=== PATIENT | female | born 1960 | race Two or more races ===

== ENCOUNTER → 2022-09-08 08:43 | Outpatient (BNVA) | payer OTHER, SELFPAY | PROVIDERS: PCP Internal Medicine; Visit Provider Student in an Organized Health Care Education/Training Program | DX: M79.7 Fibromyalgia (principal); M25.521 Pain in right elbow; M25.522 Pain in left elbow | CPT/HCPCS: 99202 ==

== ENCOUNTER 2022-10-18 11:12 | Outpatient (REF) | payer OTHER, SELFPAY ==
--- NOTE | ~2022-10-18 | XR_ITS ---
EXAMINATION: XR ELBOW, RIGHT CLINICAL INFORMATION: Pain. COMPARISON: None TECHNIQUE: AP, lateral, and oblique views of the right elbow. FINDINGS: The bones and soft tissues are normal. No fracture or joint effusion. A tiny loose body is questioned within the anterolateral joint space of the elbow. There is a small smoothly marginated accessory ossification center seen adjacent to the medial femoral condyle. Alignment is anatomic. A tiny enthesophyte arises from the olecranon process at the quadriceps tendon insertion. Joint spaces are maintained. XR/XR elbow RT min 3V IMPRESSION: No fracture, dislocation or joint effusion is seen. A tiny loose body is suspected at the right elbow anterolateral joint space.
--- NOTE | ~2022-10-18 | XR_ITS ---
EXAMINATION: XR ELBOW, LEFT CLINICAL INFORMATION: Pain. COMPARISON: None TECHNIQUE: AP, lateral, and oblique views of the left elbow. FINDINGS: The bones and soft tissues are normal. No fracture or joint effusion. Alignment is anatomic. Joint spaces are maintained. XR/XR elbow LT min 3V IMPRESSION: Normal left elbow.
== END 2022-10-18 11:13 | disposition home or self-care (01) ==
LOC: HO.XRAY 11:12
PROVIDERS: PCP Physician Assistant; Visit Provider Student in an Organized Health Care Education/Training Program
DX: M25.521 Pain in right elbow (principal); M25.522 Pain in left elbow
CPT/HCPCS: 73080

== ENCOUNTER 2022-12-02 11:30 | Outpatient (REF) | payer OTHER, SELFPAY ==
--- NOTE | 2022-12-02 10:15 | EMG_ITS ---
Bilateral median and ulnar motor and sensory studies were performed. Bilateral radial sensory studies were performed and paraspinal muscles were tested with a needle. IMPRESSION: 1. Mild, right more than left, median neuropathy across carpal tunnel. 2. No evidence of ulnar neuropathy. MD GEORGI Gutierrez/EDY / [id number]
== END 2022-12-02 11:31 | disposition home or self-care (01) ==
LOC: HO.NEURO 11:30
PROVIDERS: PCP Physician Assistant; Visit Provider Student in an Organized Health Care Education/Training Program
DX: G56.23 Lesion of ulnar nerve, bilateral upper limbs (principal)
CPT/HCPCS: 95886; 95911

== ENCOUNTER → 2022-12-08 07:58 | Outpatient (BNVA) | payer OTHER, SELFPAY | PROVIDERS: PCP Physician Assistant; Visit Provider Student in an Organized Health Care Education/Training Program | DX: M79.7 Fibromyalgia (principal); M51.36 Other intervertebral disc degeneration, lumbar region; G56.01 Carpal tunnel syndrome, right upper limb | CPT/HCPCS: 99212 ==

== ENCOUNTER → 2023-01-03 09:13 | Outpatient (BNVA) | payer OTHER, SELFPAY | PROVIDERS: PCP Internal Medicine; Visit Provider Nurse Practitioner Family | DX: M54.16 Radiculopathy, lumbar region (principal); M51.36 Other intervertebral disc degeneration, lumbar region; M47.816 Spondylosis without myelopathy or radiculopathy, lumbar region; M62.830 Muscle spasm of back; M79.7 Fibromyalgia; Z72.0 Tobacco use | CPT/HCPCS: 99202 ==

== ENCOUNTER 2023-01-12 10:59 | Outpatient (REF) | payer OTHER, SELFPAY ==
--- NOTE | ~2023-01-12 | XR_ITS ---
EXAMINATION: XR LUMBOSACRAL SPINE WITH OBLIQUES CLINICAL INFORMATION: Muscle spasm of the back. COMPARISON: None available. TECHNIQUE: 6 views of the lumbar spine including flexion and extension views. FINDINGS: Rightward apical curvature of the lumbar spine. No acute compression deformity or subluxation. No instability on flexion or extension views. Mild multilevel intervertebral disc height loss. Moderate facet arthropathy at L4-L5 and L5-S1 with some degree of neural foraminal encroachment at L5-S1. SI joints are symmetric. Pubic symphysis is maintained. No significant soft tissue abnormality. XR/XR lumbar spine 6V w bending IMPRESSION: 1. No acute compression deformity or subluxation. 2. Right apical curvature of the lumbar spine. 3. Mild to moderate lumbar spondylosis with some degree of neural foraminal encroachment at L5-S1. Recommend further evaluation with an MRI of lumbar spine as clinically indicated.
== END 2023-01-12 11:00 | disposition home or self-care (01) ==
LOC: HO.XRAY 10:59
PROVIDERS: PCP Internal Medicine; Visit Provider Nurse Practitioner Family
DX: M51.36 Other intervertebral disc degeneration, lumbar region (principal); M54.16 Radiculopathy, lumbar region; M62.830 Muscle spasm of back
CPT/HCPCS: 72114

== ENCOUNTER 2023-03-12 08:26 | Outpatient (REF) | payer OTHER, SELFPAY ==
--- NOTE | ~2023-03-12 | MR_ITS ---
MR LUMBAR SPINE WITHOUT CONTRAST CLINICAL INFORMATION: Spondylosis without myelopathy or radiculopathy, lumbar region. COMPARISON: Lumbar spine radiographs 01/12/2023. TECHNIQUE: MRI of the lumbar spine was obtained using routine sequences without contrast. FINDINGS: There is slight retrosubluxation of L1 on L2. Lumbar alignment is otherwise normal. The vertebral body heights are maintained. Disc volumes are preserved. There is no bone marrow edema. There are no acute fractures. Disc volumes are preserved. There is partial disc desiccation at all lumbar levels. 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 Small multilevel endplate osteophytes. Conus terminates at the T12-L1 level. L1-L2: A shallow right paracentral disc protrusion mildly narrows the central canal. No foraminal stenosis. L2-L3: Disc contour is normal. No central canal stenosis and no foraminal stenosis. L3-L4: Disc contour is normal. Moderate bilateral facet arthropathy and ligamentum flavum thickening. No central canal stenosis and no foraminal stenosis. L4-L5: Diffuse annular disc bulge and severe bilateral facet arthropathy and ligamentum flavum thickening. No central canal stenosis. There is mild foraminal encroachment bilaterally. L5-S1: Diffuse annular disc bulge with a superimposed shallow central disc protrusion and severe bilateral facet arthropathy and ligamentum flavum thickening. No central canal stenosis. A shallow 5 mm synovial cyst projecting anteriorly from the severely degenerative right facet joint contacts without compressing the foraminal segment of the exiting right L5 nerve root. MR/MR lumbar spine wo con IMPRESSION: - At L5-S1, there is a shallow central disc protrusion and there is severe bilateral facet arthropathy. A shallow 5 mm synovial cyst projecting anteriorly from the severely degenerative right facet joint contacts without compressing the foraminal segment of the exiting right L5 nerve root. - At L1-L2, a shallow right paracentral disc protrusion mildly indents the right ventral thecal sac. - Additional spondylitic changes as discussed above. No severe central canal stenosis and no severe foraminal stenosis within the lumbar spine. 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
== END 2023-03-12 08:27 | disposition home or self-care (01) ==
LOC: HO.MRI 08:26
PROVIDERS: PCP Internal Medicine; Visit Provider Nurse Practitioner Family
DX: M47.816 Spondylosis without myelopathy or radiculopathy, lumbar region (principal); M54.16 Radiculopathy, lumbar region; M51.36 Other intervertebral disc degeneration, lumbar region
CPT/HCPCS: 72148

== ENCOUNTER 2023-05-30 09:58 | Outpatient (AMB) | payer OTHER, SELFPAY ==
--- NOTE | 2023-05-30 10:00 | MHC.OFFVIS ---
Intake Vital Signs 05/30/23 10:04 Height 5 ft 3 in Weight 157 lb 6 oz BMI 27.9 BP 139/68 Blood Pressure Location Lt brachial Position Sitting Pulse 83 Pulse Source Pulse Oximeter Pulse Oximetry (%) 97 Oxygen Delivery Method Room Air Intake Visit Reasons: MRI results [employer] Curator Required: Yes [employer] Curator Name: Patient's CUSTOMER CONTACT REPRESENTATIVE Allergies Penicillins Allergy (Intermediate, Verified 05/30/23 10:04) hives seafood Allergy (Severe, Uncoded 12/08/22 08:30) Anaphylaxis HPI HPI Comments History of Present Illness Details Patient presents today for follow up and discuss recent lumbar spine MRI results. Patient presents with widespread diffuse body pain that starts at her neck and spreads across her upper back and both shoulder and into her mid and lower back, hips and both legs posteriorly. Patient reports this is due to fibromyalgia but also reports symptoms of axial low back pain with negative SLR testing today. Movements, prolonged standing or walking increase her mid to lower back pain. She is interested to undergo diagnostic lumbar medial branch blocks for potential Sprint PNS trial. We also discussed RFA and therapeutic injections. Denies any recent cough, cold, infection, fever or other significant changes in medical history since last office visit. Patient denies any bladder or bowel incontinence or saddle anesthesia. RIOR: Patient is a pleasant 63 years old Hebrew-speaking female with prior history of fibromyalgia, depression, chronic low back pain, and lumbar degenerative disc disease presents today for initial evaluation of worsening low back pain his radiation down to both of her legs. This is chronic pain for her and she has been previously followed by [facility] and received multiple injections with physical therapy there. Denies previous spine surgery. Patient states she did not make any significant gains regarding pain or function with previous physical therapy. Patient states that due to frequent no-shows to follow-up visits [facility] no longer will see her. She denies any recent trauma, injury, or falls. Patient reports radiating pain is worse on the left side which is in the lateral distribution with associated numbness and tingling and occasional weakness in both legs and her feet. She reports swelling in her ankles with walking. Pain affects her daily mobility, functioning, sleep and social interactions. Cymbalta and Lyrica has been helpful for fibromyalgia symptoms nd sleep. However, during severe episodes of low back pain she is unable to sleep. Patient ambulating with mildly antalgic gait and uses cane. Reports better mobility with walker which she has at home. Patient reports lumbar spine MRI and x-rays were done at [facility] and are not available today for review. She continues to stay active and incorporate short daily walks. Denies fever, abdominal or groin pain, bladder or bowel incontinence, or saddle anesthesia. Location Low back pain with radiation to both legs laterally Duration Chronic for 5 years Characteristics of symptom or complaint Aching, numbness, tingling, spasming, stabbing, sharp, burning Aggravating or associated factors Prolonged walking, standing, changing position, weather changes Relieving factors Tylenol, pregabalin, duloxetine, heat therapy, activity modification Treatment [facility], injections [facility] Medical History Bilateral elbow joint pain Fibromyalgia GERD (gastroesophageal reflux disease) Chronic obstructive bronchitis Depression Colonic polyp ANURADHA (obstructive sleep apnea) Tobacco abuse Asthma Parathyroid adenoma Incontinence of feces COPD (chronic obstructive pulmonary disease) Stable angina pectoris Allergic rhinitis Constipation IBS (irritable bowel syndrome) Dyspepsia Heartburn Postprandial epigastric pain Surgical History Hx of section Hx of tubal ligation Family History Father Hypertension Diabetes Kidney disease Heart disease Social History Household Members: None Alcohol intake: never Patient Tobacco Use Status: Current everyday Tobacco user Cigarettes Per Day: 7 Current occupational status: unemployed Review of Systems Const All systems reviewed & are unremarkable except as noted in HPI and below Physical Exam Vital Signs: Last Vital Signs Pulse 83 05/30/23 10:04 BP 139/68 05/30/23 10:04 Pulse Ox 97 05/30/23 10:04 Oxygen Delivery Method Room Air 05/30/23 10:04 BMI result Body Mass Index 27.9 General: Appears afebrile. Alert and oriented. Mood and affect appropriate. Follows and participates in conversation appropriately. Respiratory effort is unlabored. No cough. Able to transition from sit to stand unassisted. Uses cane with ambulation. Ambulates with bilaterally normal heel strike and toe off. Back/Spine/Pelvis Other: Lumbar extension reproduces moderate pain. Lumbar flexion reproduces stretching in lower back and legs. Multiple tender points 16/16 upper and lower extremities bilaterally. Cervical Spine: cervical ROM normal, cervical muscular tenderness and No Cervical spine tenderness Thoracic/Lumbar Spine: thoracic and lumbar spine normal to inspection, No Thoracic/lumbar spine scar(s), Lasegue's sign negative, straight leg raise negative bilaterally, pain with thoraco-lumbar ROM, paraspinal muscle tenderness, thoraco-lumbar ROM limited, No thoracic spinal tenderness and lumbar spinal tenderness at L4 Sacroiliac joints: bilaterally (+Luís, Luther's test reproduces lateral hip discomfort, not LBP) tender to palpation Results Reviewed Results Reviewed: MR LUMBAR SPINE WITHOUT CONTRAST 03/12/23 CLINICAL INFORMATION: Spondylosis without myelopathy or radiculopathy, lumbar region. COMPARISON: Lumbar spine radiographs 01/12/2023. FINDINGS: There is slight retrosubluxation of L1 on L2. Lumbar alignment is otherwise normal. The vertebral body heights are maintained. Disc volumes are preserved. There is no bone marrow edema. There are no acute fractures. Disc volumes are preserved. There is partial disc desiccation at all lumbar levels. 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 Small multilevel endplate osteophytes. Conus terminates at the T12-L1 level. L1-L2: A shallow right paracentral disc protrusion mildly narrows the central canal. No foraminal stenosis. L2-L3: Disc contour is normal. No central canal stenosis and no foraminal stenosis. L3-L4: Disc contour is normal. Moderate bilateral facet arthropathy and ligamentum flavum thickening. No central canal stenosis and no foraminal stenosis. L4-L5: Diffuse annular disc bulge and severe bilateral facet arthropathy and ligamentum flavum thickening. No central canal stenosis. There is mild foraminal encroachment bilaterally. L5-S1: Diffuse annular disc bulge with a superimposed shallow central disc protrusion and severe bilateral facet arthropathy and ligamentum flavum thickening. No central canal stenosis. A shallow 5 mm synovial cyst projecting anteriorly from the severely degenerative right facet joint contacts without compressing the foraminal segment of the exiting right L5 nerve root. IMPRESSION: - At L5-S1, there is a shallow central disc protrusion and there is severe bilateral facet arthropathy. A shallow 5 mm synovial cyst projecting anteriorly from the severely degenerative right facet joint contacts without compressing the foraminal segment of the exiting right L5 nerve root. - At L1-L2, a shallow right paracentral disc protrusion mildly indents the right ventral thecal sac. - Additional spondylitic changes as discussed above. No severe central canal stenosis and no severe foraminal stenosis within the lumbar spine. 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 Assessment & Plan Assessment & Plan (1) Degenerative disc disease, lumbar: Code(s): M51.36 - Other intervertebral disc degeneration, lumbar region (2) Fibromyalgia: Code(s): M79.7 - Fibromyalgia (3) Muscle spasm of back: Code(s): M62.830 - Muscle spasm of back (4) Lumbar radiculopathy: Code(s): M54.16 - Radiculopathy, lumbar region (5) Lumbar spondylosis: Code(s): M47.816 - Spondylosis without myelopathy or radiculopathy, lumbar region Plan Lumbar spine MRI results discussed with patient today and are noted above. For fibromyalgic chronic pain: Recommend daily physical activity, stress reduction, CBT therapy, sleep hygiene, anti-inflammatory diet and aqua therapy. Continue Lyrica, Duloxetine, Tylenol. For ongoing axial low back pain will proceed plan for diagnostic bilateral L3-L4 DR L5 medial branch blocks with local and fluoroscopy. If she has significant relief from the diagnostic blocks for her axial low back pain, will consider either therapeutic injections, Sprint PNS or RFA depending on her preference. Informational booklet provided to patient today in Hebrew. She is interested in Sprint trial. All questions and concerns have been answered and patient agreed with the plan. Follow up after injections and sooner if needed. Anticoagulation: Patient not on anticoagulant Justification for interventional therapy: ? Patient with average pain > 6/10 ? Patient has exhausted conservative therapy, physical therapy The risks, consequences, alternatives, and benefits of various treatment options were discussed with the patient in great detail, including conservative management, injections and procedures. Coding Level of Care Code Est Pt Level 4 (56459) Diagnoses Degenerative disc disease, lumbar M51.36 Fibromyalgia M79.7 Muscle spasm of back M62.830 Lumbar radiculopathy M54.16 Lumbar spondylosis M47.816
[2023-05-30 10:04] VITALS: BP 139/68; PULSE 83; O2SAT 97; BMI 27.9
== END 2023-05-30 10:26 | disposition home or self-care (01) ==
PROVIDERS: PCP Internal Medicine; Visit Provider Nurse Practitioner Family
DX: M51.36 Other intervertebral disc degeneration, lumbar region (principal); M79.7 Fibromyalgia; M62.830 Muscle spasm of back; M54.16 Radiculopathy, lumbar region; M47.816 Spondylosis without myelopathy or radiculopathy, lumbar region
CPT/HCPCS: 99214

== ENCOUNTER → 2023-05-30 09:58 | Outpatient (BNVA) | payer OTHER, SELFPAY | PROVIDERS: PCP Internal Medicine; Visit Provider Nurse Practitioner Family | DX: M51.36 Other intervertebral disc degeneration, lumbar region (principal); M79.7 Fibromyalgia; M62.830 Muscle spasm of back; M54.16 Radiculopathy, lumbar region; M47.816 Spondylosis without myelopathy or radiculopathy, lumbar region | CPT/HCPCS: 99212 ==

== ENCOUNTER 2023-06-21 06:04 | Outpatient (REF) | payer OTHER, SELFPAY ==
--- NOTE | ~2023-06-21 | FL_ITS ---
EXAMINATION: XR FLUOROSCOPY WITH IMAGES CLINICAL INFORMATION: Spondylosis without myelopathy or radiculopathy, lumbar region. COMPARISON: None available. TECHNIQUE: Fluoroscopy Supervised By: Dr. Alexis Burks. Fluoroscopy Time: 0.6 minutes. Cumulative Dose: 17.7 mGy. DAP: 0.246 Gycm2. Images: 6. FINDINGS: Images demonstrate needle placement and contrast injection adjacent to the bilateral lateral L3, L4 and L5 vertebrae FL/FL guidance in treatment room IMPRESSION: Fluoroscopy guidance for pain management procedure
== END 2023-06-21 06:05 | disposition home or self-care (01) ==
LOC: CF 06:04
PROVIDERS: Visit Provider Anesthesiology
DX: M47.26 Other spondylosis with radiculopathy, lumbar region (principal); M51.36 Other intervertebral disc degeneration, lumbar region; M79.7 Fibromyalgia; M62.830 Muscle spasm of back
CPT/HCPCS: 64493; 64494; J2795; Q9967

== ENCOUNTER 2023-06-21 09:47 | Outpatient (AMB) | payer OTHER, SELFPAY ==
--- NOTE | 2023-06-21 09:58 | A.OFFVIS_ITS ---
Intake Vital Signs 06/21/23 11:14 06/21/23 11:15 Height 5 ft 3 in 5 ft 3 in Weight 157 lb 157 lb BMI 27.8 27.8 BP 130/74 132/88 Blood Pressure Location Lt brachial Rt brachial Position Sitting Sitting Respiration 12 14 Pulse 78 73 Pulse Source Pulse Oximeter Pulse Oximeter Pulse Oximetry (%) 94 97 Oxygen Delivery Method Room Air Room Air Comment pre-op post-op Intake Visit Reasons: BILATERAL DIAGNOSTIC L3, L4, DRL5 MBB Allergies Penicillins Allergy (Intermediate, Verified 06/21/23 11:16) hives seafood Allergy (Severe, Uncoded 12/08/22 08:30) Anaphylaxis PFSH Medical History Bilateral elbow joint pain Fibromyalgia GERD (gastroesophageal reflux disease) Chronic obstructive bronchitis Depression Colonic polyp ANURADHA (obstructive sleep apnea) Tobacco abuse Asthma Parathyroid adenoma Incontinence of feces COPD (chronic obstructive pulmonary disease) Stable angina pectoris Allergic rhinitis Constipation IBS (irritable bowel syndrome) Dyspepsia Heartburn Postprandial epigastric pain Surgical History Hx of section Hx of tubal ligation Family History Father Hypertension Diabetes Kidney disease Heart disease Social History Household Members: None Alcohol intake: never Patient Tobacco Use Status: Current everyday Tobacco user Cigarettes Per Day: 7 Current occupational status: unemployed Physical Exam Vital Signs: Last Vital Signs Pulse 73 06/21/23 11:15 Resp 14 06/21/23 11:15 BP 132/88 06/21/23 11:15 Pulse Ox 97 06/21/23 11:15 Oxygen Delivery Method Room Air 06/21/23 11:15 BMI result Body Mass Index 27.8 Assessment & Plan Assessment & Plan (1) Degenerative disc disease, lumbar: Code(s): M51.36 - Other intervertebral disc degeneration, lumbar region Plan: Diagnostic bilateral L3-L4 dorsal ramus L5 medial branch block. Informed consent was explained to the patient. All questions were explained and? answered.? The patient was taken inside the operating room where she was positioned prone on the operating table.? Time-out was performed delineating correct site, side, the nature of the procedure, patient's allergy, preoperative antibiotic if needed.? All operating room staff was participating in OR time-out procedure. The lower back was prepped with ChloraPrep and draped with sterile towels.? Sterilely draped C-arm was brought over the operating field and sq picture of L4-and L5 vertebra and S1 AREA were delineated on the screen.? Point of interest were delineated as connection of superior articular process of L4 and L5 verte bra bilaterally with corresponding transverse processes as well as connection of the sacral alae bilaterally with superior articular process of S1.? The projection of the point of interest to the skin were injected with the small amount of local anesthetic lidocaine 2% 1-1.5 cc.? After that 22 gauge 3-1/2 inch spinal needle was driven sequentially to the points of interest in tunnel vision fashion. After needles gently contacted the bone at the point of interests the needle was injected with small amount of the contrast.? The injection of the contrast did not demonstrate any intravascular or intrathecal spread of the contrast.? After that injection of the? bupivacaine 0.5%-1cc was performed at each needle location.? Upon completion of the injections? needle was? removed and sterile Band-Aids were applied.? The? patient was awaken and taken outside of the operating room to recovery room where she recovered uneventfully.? She went home without immediate complications. Pain diary was explained to the patient. (2) Fibromyalgia: Code(s): M79.7 - Fibromyalgia (3) Muscle spasm of back: Code(s): M62.830 - Muscle spasm of back (4) Lumbar radiculopathy: Code(s): M54.16 - Radiculopathy, lumbar region (5) Lumbar spondylosis: Code(s): M47.816 - Spondylosis without myelopathy or radiculopathy, lumbar region Plan Lumbar spine MRI results discussed with patient today and are noted above. For fibromyalgic chronic pain: Recommend daily physical activity, stress reduction, CBT therapy, sleep hygiene, anti-inflammatory diet and aqua therapy. Continue Lyrica, Duloxetine, Tylenol. For ongoing axial low back pain will proceed plan for diagnostic bilateral L3-L4 DR L5 medial branch blocks with local and fluoroscopy. If she has significant relief from the diagnostic blocks for her axial low back pain, will consider either therapeutic injections, Sprint PNS or RFA depending on her preference. Informational booklet provided to patient today in Guamanian. She is interested in Sprint trial. All questions and concerns have been answered and patient agreed with the plan. Follow up after injections and sooner if needed. Anticoagulation: Patient not on anticoagulant Justification for interventional therapy: ? Patient with average pain > 6/10 ? Patient has exhausted conservative therapy, physical therapy The risks, consequences, alternatives, and benefits of various treatment options were discussed with the patient in great detail, including conservative management, injections and procedures. Orders: Orders FL guidance in treatment room 06/21/23 M47.816 - Spondylosis without myelopathy or radiculopathy, lumbar region Coding Level of Care Code Procedure Only Diagnoses Degenerative disc disease, lumbar M51.36 Fibromyalgia M79.7 Muscle spasm of back M62.830 Lumbar radiculopathy M54.16 Lumbar spondylosis M47.816
[2023-06-21 11:14] VITALS: BP 130/74; PULSE 78; RESP 12; O2SAT 94; BMI 27.8
[2023-06-21 11:15] VITALS: BP 132/88; PULSE 73; RESP 14; O2SAT 97; BMI 27.8
== END 2023-06-21 11:01 | disposition home or self-care (01) ==
LOC: HO.PMCPRC 09:47
PROVIDERS: PCP Internal Medicine; Visit Provider Anesthesiology
DX: M47.816 Spondylosis without myelopathy or radiculopathy, lumbar region (principal)
CPT/HCPCS: 64493; 64494

== ENCOUNTER 2023-06-28 10:06 | Outpatient (AMB) | payer OTHER, SELFPAY ==
--- NOTE | 2023-06-28 10:14 | MHC.OFFVIS ---
Intake Vital Signs 06/28/23 10:20 Height 5 ft 3 in Weight 163 lb BMI 28.9 BP 178/97 H Blood Pressure Location Rt brachial Position Sitting Pulse 84 Pulse Source Pulse Oximeter Pulse Oximetry (%) 98 Oxygen Delivery Method Room Air Intake Visit Reasons: BILATERAL DX L3, L4, DRL5 MBB/06/21/23/CONFIRMED Intake Note: Pain today 02/21 Hydraulic Spinner Required: Yes Hydraulic Spinner Language: Teacher Home Therapy Name: [facility] #[id number] Allergies Penicillins Allergy (Intermediate, Verified 06/28/23 10:21) hives seafood Allergy (Severe, Uncoded 12/08/22 08:30) Anaphylaxis HPI HPI Comments History of Present Illness Details Patient presents today to assess response to Diagnostic Bilateral L3-L4-DR L5 MBB on 06/21/[address] Burks. Patient reports 50-60% pain relief for 4-5 hours with partially improved functioning, mobility, climbing stairs and ADLs. She is not fully content with outcome of nerve blocks. Patient is hesitant towards any further interventional treatments as injections have exacerbated her fibromyalgia symptoms. She is interested to pursue formal course of physical therapy and trial of anti-inflammatory medication. Patient denies any bladder or bowel incontinence or saddle anesthesia. Past Procedures: 06/21/23: Diagnostic Bilateral L3-L4-DR L5 MBB -50-60% pain relief for 4 hours PRIOR: Patient presents today for follow up and discuss recent lumbar spine MRI results. Patient presents with widespread diffuse body pain that starts at her neck and spreads across her upper back and both shoulder and into her mid and lower back, hips and both legs posteriorly. Patient reports this is due to fibromyalgia but also reports symptoms of axial low back pain with negative SLR testing today. Movements, prolonged standing or walking increase her mid to lower back pain. She is interested to undergo diagnostic lumbar medial branch blocks for potential Sprint PNS trial. We also discussed RFA and therapeutic injections. Denies any recent cough, cold, infection, fever or other significant changes in medical history since last office visit. Patient denies any bladder or bowel incontinence or saddle anesthesia. RIOR: Patient is a pleasant 63 years old Irish-speaking female with prior history of fibromyalgia, depression, chronic low back pain, and lumbar degenerative disc disease presents today for initial evaluation of worsening low back pain his radiation down to both of her legs. This is chronic pain for her and she has been previously followed by [facility] and received multiple injections with physical therapy there. Denies previous spine surgery. Patient states she did not make any significant gains regarding pain or function with previous physical therapy. Patient states that due to frequent no-shows to follow-up visits [facility] no longer will see her. She denies any recent trauma, injury, or falls. Patient reports radiating pain is worse on the left side which is in the lateral distribution with associated numbness and tingling and occasional weakness in both legs and her feet. She reports swelling in her ankles with walking. Pain affects her daily mobility, functioning, sleep and social interactions. Cymbalta and Lyrica has been helpful for fibromyalgia symptoms nd sleep. However, during severe episodes of low back pain she is unable to sleep. Patient ambulating with mildly antalgic gait and uses cane. Reports better mobility with walker which she has at home. Patient reports lumbar spine MRI and x-rays were done at [facility] and [facility] and are not available today for review. She continues to stay active and incorporate short daily walks. Denies fever, abdominal or groin pain, bladder or bowel incontinence, or saddle anesthesia. Location Low back pain with radiation to both legs laterally Duration Chronic for 5 years Characteristics of symptom or complaint Aching, numbness, tingling, spasming, stabbing, sharp, burning Aggravating or associated factors Prolonged walking, standing, changing position, weather changes Relieving factors Tylenol, pregabalin, duloxetine, heat therapy, activity modification Treatment [facility]-PT, injections [facility] Medical History Bilateral elbow joint pain Fibromyalgia GERD (gastroesophageal reflux disease) Chronic obstructive bronchitis Depression Colonic polyp ANURADHA (obstructive sleep apnea) Tobacco abuse Asthma Parathyroid adenoma Incontinence of feces COPD (chronic obstructive pulmonary disease) Stable angina pectoris Allergic rhinitis Constipation IBS (irritable bowel syndrome) Dyspepsia Heartburn Postprandial epigastric pain Surgical History Hx of section Hx of tubal ligation Family History Father Hypertension Diabetes Kidney disease Heart disease Social History Household Members: None Alcohol intake: never Patient Tobacco Use Status: Current everyday Tobacco user Cigarettes Per Day: 7 Current occupational status: unemployed Review of Systems Const All systems reviewed & are unremarkable except as noted in HPI and below Physical Exam Vital Signs: Last Vital Signs Pulse 84 06/28/23 10:20 BP 178/97 H 06/28/23 10:20 Pulse Ox 98 06/28/23 10:20 Oxygen Delivery Method Room Air 06/28/23 10:20 BMI result Body Mass Index 28.9 General: Appears afebrile. Alert and oriented. Mood and affect appropriate. Follows and participates in conversation appropriately. Respiratory effort is unlabored. No cough. Able to transition from sit to stand unassisted. Uses cane with ambulation. Ambulates with bilaterally normal heel strike and toe off. Back/Spine/Pelvis Other: Lumbar extension reproduces moderate pain. Lumbar flexion reproduces stretching in lower back and legs. No midline tenderness to palpation in the lumbar spine. Mild paraspinal tenderness to palpation in the lumbar spine. Multiple tender points 16/16 upper and lower extremities bilaterally. Results Reviewed Results Reviewed: MR LUMBAR SPINE WITHOUT CONTRAST 03/12/23 CLINICAL INFORMATION: Spondylosis without myelopathy or radiculopathy, lumbar region. COMPARISON: Lumbar spine radiographs 01/12/2023. FINDINGS: There is slight retrosubluxation of L1 on L2. Lumbar alignment is otherwise normal. The vertebral body heights are maintained. Disc volumes are preserved. There is no bone marrow edema. There are no acute fractures. Disc volumes are preserved. There is partial disc desiccation at all lumbar levels. 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 Small multilevel endplate osteophytes. Conus terminates at the T12-L1 level. L1-L2: A shallow right paracentral disc protrusion mildly narrows the central canal. No foraminal stenosis. L2-L3: Disc contour is normal. No central canal stenosis and no foraminal stenosis. L3-L4: Disc contour is normal. Moderate bilateral facet arthropathy and ligamentum flavum thickening. No central canal stenosis and no foraminal stenosis. L4-L5: Diffuse annular disc bulge and severe bilateral facet arthropathy and ligamentum flavum thickening. No central canal stenosis. There is mild foraminal encroachment bilaterally. L5-S1: Diffuse annular disc bulge with a superimposed shallow central disc protrusion and severe bilateral facet arthropathy and ligamentum flavum thickening. No central canal stenosis. A shallow 5 mm synovial cyst projecting anteriorly from the severely degenerative right facet joint contacts without compressing the foraminal segment of the exiting right L5 nerve root. IMPRESSION: - At L5-S1, there is a shallow central disc protrusion and there is severe bilateral facet arthropathy. A shallow 5 mm synovial cyst projecting anteriorly from the severely degenerative right facet joint contacts without compressing the foraminal segment of the exiting right L5 nerve root. - At L1-L2, a shallow right paracentral disc protrusion mildly indents the right ventral thecal sac. - Additional spondylitic changes as discussed above. No severe central canal stenosis and no severe foraminal stenosis within the lumbar spine. 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 Assessment & Plan Assessment & Plan (1) Lumbar spondylosis: Code(s): M47.816 - Spondylosis without myelopathy or radiculopathy, lumbar region (2) Muscle spasm of back: Code(s): M62.830 - Muscle spasm of back (3) Degenerative disc disease, lumbar: Code(s): M51.36 - Other intervertebral disc degeneration, lumbar region (4) Fibromyalgia: Code(s): M79.7 - Fibromyalgia Plan Patient is status post diagnostic lumbar MBBs with 50-60% pain relief for 4 hours with partial improvement in her functioning and mobility. Unfortunately, these injections have exacerbated her fibromyalgia symptoms and she is very hesitant towards any future injections or interventions. Per patient's request, I am sending her for formal course of PT and to establish intermission coordinator home exercise program for chronic low back pain. Script sent for Celebrex, side effects and precautions reviewed. All questions and concerns have been answered and patient agreed with the plan. Follow up as needed. Orders: Orders PT Evaluation and Treatment Today M47.816 - Spondylosis without myelopathy or radiculopathy, lumbar region, M51.36 - Other intervertebral disc degeneration, lumbar region, M62.830 - Muscle spasm of back, M79.7 - Fibromyalgia Medications: New celecoxib (Celebrex) Take it with food and full glass of water. 100 mg PO BID PRN 60 caps 0RF pain M47.816 - Spondylosis without myelopathy or radiculopathy, lumbar region, M51.36 - Other intervertebral disc degeneration, lumbar region Coding Level of Care Code Est Pt Level 4 (45608) Diagnoses Lumbar spondylosis M47.816 Muscle spasm of back M62.830 Degenerative disc disease, lumbar M51.36 Fibromyalgia M79.7
[2023-06-28 10:20] VITALS: BP 178/97; PULSE 84; O2SAT 98; BMI 28.9
== END 2023-06-28 10:41 | disposition home or self-care (01) ==
PROVIDERS: PCP Internal Medicine; Visit Provider Nurse Practitioner Family
DX: M47.816 Spondylosis without myelopathy or radiculopathy, lumbar region (principal); M62.830 Muscle spasm of back; M51.36 Other intervertebral disc degeneration, lumbar region; M79.7 Fibromyalgia
CPT/HCPCS: 99214

== ENCOUNTER → 2023-06-28 10:06 | Outpatient (BNVA) | payer OTHER, SELFPAY | PROVIDERS: PCP Internal Medicine; Visit Provider Nurse Practitioner Family | DX: M47.816 Spondylosis without myelopathy or radiculopathy, lumbar region (principal); M62.830 Muscle spasm of back; M51.36 Other intervertebral disc degeneration, lumbar region; M79.7 Fibromyalgia | CPT/HCPCS: 99212 ==

== ENCOUNTER 2023-09-16 12:54 | Outpatient (RCR) | payer OTHER, SELFPAY ==
--- NOTE | 2023-09-16 13:50 | MHC.PT.EP ---
[facility] [place] Office [place] Office [place] Office [address] Maritza Hays [address] [phone] F: [phone] F: [phone] F: [phone] F: [phone] Physical Therapy Plan of Care Date of Evaluation: 09/16/23 Date of Surgery: n/a Diagnosis: muscle spasm of back Assessment: Patient is a 63 year old female presenting to PT with complaints of pain in her low back. Pt reports onset of pain began years ago due to insidious onset. She presents today with impairments in pain, lumbar ROM, core strength, hip strength. Pt's current occupation is none, with baseline physical activities including standing, ambulating. Pt expresses watermaster goal of reducing pain, and is motivated to work towards this in PT. Clinical presentation today is most consistent with signs and sx associated with low back pain and pt will benefit from skilled PT 2 week x 4 weeks to address the following problems and impairments noted upon evaluation: pain, lumbar ROM, core strength, hip strength. These problems limit the patient with the following functional activities: standing, ambulating. The prescribed treatment plan of care is medically necessary. Co-morbidities of fibromyalgia were identified and taken into considerations of plan of care. Pt was educated on HEP, role of PT, prognosis, POC. Frequency and Duration: The patient will be seen 2 x week x 4 weeks Short Term Goals: Pt will demonstrate improved hip MMT strength by 1/3 grade in 2 weeks for improved lumbopelvic stability. Pt will demonstrate ability to move through available lumbar ROM with min to no pain in 2 weeks. Pt will report pain at rest <5/10 in 2 weeks. Detention Goals: Pt will demonstrate improved Stephie score by 10% in 4 weeks for improved functional mobility. Pt will demonstrate ability to ambulate around her home and community with min to no pain in 4 weeks for return to PLOF. Treatment Plan: Modalities to reduce pain, spasms and effusion. Manual therapy to restore motion and function. Therapeutic exercise to improve strength and flexibility. Neuromuscular re-education for posture and balance. Therapeutic activities to return to functional activities of daily living. Electronically signed by: Rita Chaparro, PT, DPT, ATC Please sign and return to therapist. Thank you for your referral.
--- NOTE | 2023-09-30 13:16 | MHC.PT.DC ---
[facility] [place] Office [place] Office [place] Office [address] [phone] F: [phone] F: [phone] F: [phone] F: [phone] Physical Therapy Discharge Report Diagnosis: muscle spasm of back Date of Surgery: n/a Date of Evaluation: 09/16/23 Date of Discharge: 09/30/23 Treatments to Date: 1 Cancellations to Date: 0 No Shows to Date: 2 Discharge Status: Visit Non-compliance Discharge Summary: Pt has failed to comply with [facility] attendance policy and no showed her first 2 follow ups. Pt to be d/c per policy. Electronically signed by: Rita Chaparro PT, DPT, ATC Please sign and return to therapist. Thank you for your referral.
== END 2023-09-30 13:17 | disposition home or self-care (01) ==
LOC: HO.PTCHIC 12:54
PROVIDERS: PCP Internal Medicine; Visit Provider Nurse Practitioner Family
DX: M47.816 Spondylosis without myelopathy or radiculopathy, lumbar region (principal); M62.830 Muscle spasm of back; M51.36 Other intervertebral disc degeneration, lumbar region
CPT/HCPCS: 97110; 97162

== ENCOUNTER 2023-12-29 13:29 | Outpatient (AMB) | payer MEDICARE, MEDICAID, SELFPAY ==
[2023-12-29 14:13] VITALS: BP 126/72; PULSE 88; O2SAT 97; BMI 32.2
--- NOTE | 2023-12-29 14:13 | MHC.OFFVIS ---
Vital Signs 12/29/23 14:13 Height 5 ft 3 in Weight 181 lb 14.102 oz BMI 32.2 BP 126/72 Blood Pressure Location Rt brachial Position Sitting Pulse 88 Pulse Source Pulse Oximeter Pulse Oximetry (%) 97 Oxygen Delivery Method Room Air Intake Visit Reasons: FMS/LVM Intake Note: Patient last seen 12/08/22 presents today for 1 year follow up. Using wrist splints but still has hand pain. Saw Esperanza Clifford and will be seeing hand surgeon for CTS consult next week. Also reports bl kn ee pain and cracking , worse on left side. Director Of Field Coordination Required: Yes Director Of Field Coordination Name: Esha [id number] Information Interpreted: clinical only Accompanied by: Self / Same As Patient Allergies Penicillins Allergy (Intermediate, Verified 12/29/23 14:29) hives seafood Allergy (Severe, Uncoded 12/29/23 14:29) Anaphylaxis Medication List - Last Reconciled 12/29/23 by Kj Robert MD acetaminophen (Tylenol Extra Strength) 1,000 mg PO Q6H PRN amlodipine 5 mg PO DAILY azelastine 1 spray intranasal BID bisacodyl 10 mg WA DAILY PRN buspirone 30 mg PO BID calcium carbonate-vitamin D3 500 mg-10 mcg (400 unit) (Calcium 500 + D) 1 tab PO BID celecoxib (Celebrex) 100 mg PO BID PRN cetirizine (Allergy Relief (cetirizine)) 10 mg PO DAILY PRN cholecalciferol (vitamin D3) 50 mcg PO DAILY diphenhydramine HCl (Benadryl) 25 mg PO TID PRN divalproex 250 mg PO DAILY duloxetine 60 mg PO DAILY ezetimibe 10 mg PO DAILY famotidine 20 mg PO BID fluticasone propionate 50 mcg/actuation (Allergy Relief (fluticasone)) 2 sprays intranasal BID hydrochlorothiazide 25 mg PO DAILY ketoconazole 2% 1 appl topical DAILY loperamide 2 mg PO Q6H PRN methocarbamol 750 mg PO BID PRN 30 days pantoprazole 40 mg PO DAILY polyethylene glycol 3350 17 grams PO DAILY pregabalin 75 mg PO BID psyllium husk (Fiber (psyllium husk)) 0.4 grams PO DAILY rosuvastatin 20 mg PO DAILY trospium ER 60 mg PO DAILY umeclidinium 62.5 mcg/actuation (Incruse Ellipta) 1 inh inhalation DAILY [wrist splint wear as all night & as much as possible throughout the day] HPI Comments Details: 63-year-old female with fibromyalgia returns for follow-up. She was evaluated by pain management and received multiple injections which did provide reasonable pain relief but she did not want to continue with them as those injections flared her fibromyalgia she was evaluated by hand surgeon for carpal tunnel syndrome on the right and is scheduled for surgery in February. She is wearing right wrist splint. She stated that she started to exercise, at the recommendation of her PCP. She walks for 30-45 minutes. She also goes up the stairs. Has not been having bilateral knee pain. She attributes to recent increase in exercise. The pain is on the medial aspect of both knees. She uses Voltaren gel nightly. Initial history: This is a 62-year-old female with the past medical history of anxiety, depression, GERD, fibromyalgia who presents for evaluation of diffuse pain. Patient used to be evaluated at [facility] by Shemar Franklin. She is currently on multiple medications for fibromyalgia, anxiety and depression. She continues to have pain in her neck, shoulders, back, knees, elbows Majority of patients pain however is in her elbows however. She has bilateral elbow pain radiating up and down from her elbows. [facility] Medical History Bilateral elbow joint pain Fibromyalgia GERD (gastroesophageal reflux disease) Chronic obstructive bronchitis Depression Colonic polyp ANURADHA (obstructive sleep apnea) Tobacco abuse Asthma Parathyroid adenoma Incontinence of feces COPD (chronic obstructive pulmonary disease) Stable angina pectoris Allergic rhinitis Constipation IBS (irritable bowel syndrome) Dyspepsia Heartburn Postprandial epigastric pain Surgical History Hx of section Hx of tubal ligation Family History Father Hypertension Diabetes Kidney disease Heart disease Social History Household Members: None Alcohol intake: never Patient Tobacco Use Status: Current everyday Tobacco user Cigarettes Per Day: 7 Current occupational status: unemployed Review of Systems GI Reports no additional complaints Musc Reports arthralgias and Reports joint swelling Physical Exam Vital Signs: Last Vital Signs Pulse 88 12/29/23 14:13 BP 126/72 12/29/23 14:13 Pulse Ox 97 12/29/23 14:13 Oxygen Delivery Method Room Air 12/29/23 14:13 BMI result Body Mass Index 32.2 Const General: cooperative, healthy appearing and comfortable Nutritional Appearance: average body habitus Orientation/consciousness: patient oriented x3 Limitations: no limitations HEENT Head: Yes normocephalic and Yes atraumatic Resp Effort & Inspection: normal respiratory effort and able to speak in complete sentences GI Inspection: No distended Palpation (GI): Soft to palpation and nontender Neuro General: patient oriented x3 Extrem Other: Rare fibromyalgia tender points Right hand in a wrist splint Bilateral knee crepitus, more prominent on the right Bilateral knee pain with full extension Assessment & Plan Assessment & Plan (1) Fibromyalgia: Code(s): M79.7 - Fibromyalgia Category: Medical Plan: 63-year-old female with fibromyalgia returns for follow-up. Patient has had fibromyalgia for many years. She is currently on Lyrica and Cymbalta by her PCP without side effects. She has recently started to do different forms of exercise which on exam has helped her fibromyalgia however it has flared her knee osteoarthritis. Follow-up with PCP (2) Carpal tunnel syndrome of right wrist: Code(s): G56.01 - Carpal tunnel syndrome, right upper limb Category: Medical Plan: Bilateral upper extremity EMG/NCV showed mild right carpal tunnel. She is using right hand wrist splint and scheduled for carpal tunnel release in February (3) Bilateral primary osteoarthritis of knee: Code(s): M17.0 - Bilateral primary osteoarthritis of knee Category: Medical Plan: Discussed different treatment options. I suggested some modification of activity. Advised patient to increase Voltaren gel use up to 4 times a day. Start doing some quadriceps strengthening exercises. If no improvement, patient can call us and can come in for a knee injection Plan I spent 24 minutes reviewing patient's chart, evaluating patient, counseling patient and documenting in the chart Coding Level of Care Code Est Pt Level 4 (92080) Diagnoses Fibromyalgia M79.7 Carpal tunnel syndrome of right wrist G56.01 Bilateral primary osteoarthritis of knee M17.0
== END 2023-12-29 14:48 | disposition home or self-care (01) ==
PROVIDERS: PCP Internal Medicine; Visit Provider Student in an Organized Health Care Education/Training Program
DX: M79.7 Fibromyalgia (principal); G56.01 Carpal tunnel syndrome, right upper limb; M17.0 Bilateral primary osteoarthritis of knee
CPT/HCPCS: 99214

== ENCOUNTER → 2023-12-29 13:29 | Outpatient (BNVA) | payer MEDICARE, MEDICAID, SELFPAY | PROVIDERS: PCP Internal Medicine; Visit Provider Student in an Organized Health Care Education/Training Program | DX: M79.7 Fibromyalgia (principal); G56.01 Carpal tunnel syndrome, right upper limb; M17.0 Bilateral primary osteoarthritis of knee; Z79.899 Other long term (current) drug therapy | CPT/HCPCS: 99212 ==

== ENCOUNTER 2024-01-20 21:10 | Emergency (ER) | payer OTHER, SELFPAY ==
[2024-01-20 21:24] VITALS: BP 150/90; PULSE 84; O2SAT 97
[2024-01-20 21:52] VITALS: BP 134/68; PULSE 82; RESP 18; TEMP 36.3; O2SAT 94; BMI 28.5
[2024-01-21 01:00] LABS: Appearance Urine Clear; Color Urine Yellow; Glucose Urine UA 100 mg/dL (Negative); Leukocyte Esterase Urine Negative (Negative); Nitrite Urine Negative (Negative); PH 8.5 (5.0-9.0); Specific Gravity - Urine 1.025 (1.005-1.025); Urine Blood Negative (Negative); Urine Ketones 15 mg/dL (Negative); Urine Protein Negative (Neg-Trace)
[2024-01-21 01:16] VITALS: BP 142/85; PULSE 83; RESP 17; TEMP 36.6; O2SAT 91
--- NOTE | 2024-01-21 01:20 | ED_ITS ---
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 she takes celebrex motrin and tylenol but the pain will not go away. MD elicited complaint: back pain Pertinent past history: prior back pain Onset (ago): day(s) (2) Timing: constant Severity: severe Similar Symptoms Previously: Yes Quality: sharp and throbbing Location: lumbar spine Radiation: left upper leg and right upper leg Exacerbating factors: movement, sitting upright and walking Relieving factors: immobilization Context: while lifting Associated symptoms: denies other symptoms Treatments prior to arrival: NSAIDS and acetaminophen Work related injury: No Related Data Home Medications ?Medication ?Instructions ?Recorded ?Confirmed acetaminophen 500 mg tablet 1,000 mg PO Q6H PRN 08/19/22 12/29/23 (Tylenol Extra Strength) amlodipine 5 mg tablet 5 mg PO DAILY 08/19/22 12/29/23 azelastine 137 mcg (0.1 %) nasal 1 spray intranasal BID 08/19/22 12/29/23 spray aerosol bisacodyl 10 mg rectal suppository [address] DAILY PRN 08/19/22 12/29/23 calcium carbonate 500 mg-vitamin 1 tab PO BID 08/19/22 12/29/23 D3 10 mcg (400 unit) tablet (Calcium 500 + D) cetirizine 10 mg tablet (Allergy 10 mg PO DAILY PRN 08/19/22 12/29/23 Relief (cetirizine)) cholecalciferol (vitamin D3) 50 50 mcg PO DAILY 08/19/22 12/29/23 mcg (2,000 unit) capsule diphenhydramine HCl 25 mg capsule 25 mg PO TID PRN 08/19/22 12/29/23 (Benadryl) divalproex 250 mg tablet,delayed 250 mg PO DAILY 08/19/22 12/29/23 release duloxetine 60 mg capsule,delayed 60 mg PO DAILY 08/19/22 12/29/23 release famotidine 20 mg tablet 20 mg PO BID 08/19/22 12/29/23 fluticasone propionate 50 2 spray intranasal BID 08/19/22 12/29/23 mcg/actuation nasal spray,suspension (Allergy Relief (fluticasone)) hydrochlorothiazide 12.5 mg tablet 25 mg PO DAILY 08/19/22 12/29/23 ketoconazole 2 % topical cream 1 appl topical DAILY 08/19/22 12/29/23 loperamide 2 mg tablet 2 mg PO Q6H PRN 08/19/22 12/29/23 pantoprazole 40 mg tablet,delayed 40 mg PO DAILY 08/19/22 12/29/23 release polyethylene glycol 3350 17 17 g PO DAILY 08/19/22 12/29/23 gram/dose oral powder pregabalin 75 mg capsule 75 mg PO BID 08/19/22 12/29/23 psyllium husk 0.4 gram capsule 0.4 g PO DAILY 08/19/22 12/29/23 (Fiber (psyllium husk)) umeclidinium 62.5 mcg/actuation 1 inh inhalation DAILY 08/19/22 12/29/23 blister powder for inhalation (Incruse Ellipta) ezetimibe 10 mg tablet 10 mg PO DAILY 09/08/22 12/29/23 rosuvastatin 20 mg tablet 20 mg PO DAILY 09/08/22 12/29/23 trospium 60 mg capsule,extended 60 mg PO DAILY 09/08/22 12/29/23 release 24 hr buspirone 30 mg tablet 30 mg PO BID 12/29/23 12/29/23 Previous Rx's ?Medication ?Instructions ?Recorded wrist splint #1 ea 12/08/22 methocarbamol 750 mg tablet 750 mg PO BID PRN muscle spasm 30 01/03/23 days #60 tabs celecoxib 100 mg capsule (Celebrex) 100 mg PO BID PRN pain #60 caps 06/28/23 prednisone 5 mg tablet See Rx Instructions PO DAILY #30 01/20/24 tabs morphine 15 mg immediate release 15 mg PO TID PRN pain #10 tabs 01/21/24 tablet Allergies Allergy/AdvReac Type Severity Reaction Status Date / Time Penicillins Allergy Intermediate hives Verified 01/20/24 21:54 acetaminophen [From Percocet] Allergy Nausea Verified 01/20/24 21:54 oxycodone [From Percocet] Allergy Nausea Verified 01/20/24 21:54 seafood Allergy Severe Anaphylaxis Uncoded 12/29/23 14:29 Review of Systems Review of Systems: Constitutional : No Weight loss, No Fever, No Chills, ENT/Mouth : No Hearing loss, No Ear Pain, No Nasal Congestion, No Sinus Pain, No Hoarseness, No sore throat, No Rhinorrhea, No Swallowing Difficulty Cardiovascular : No Chest Pain, No SOB Respiratory : No Cough, No Dyspnea Gastrointestinal : No Nausea, No Vomiting, No Diarrhea, No abdominal Pain, No Hematochezia, No Melena Genitourinary : No Dysuria, No Urinary Frequency, No Hematuria, No Urinary Incontinence, Musculoskeletal : positive back pain Skin : No Skin Lesions, No rash Neuro : No Weakness, No Numbness, No Paresthesias, no loss of bowel or bladder incontinence, no saddle anesthesia all other systems reviewed and are negative [facility] Past Medical History Attestation statement: The following information was validated with the patient. Source: old records reviewed Medical History Bilateral elbow joint pain Fibromyalgia GERD (gastroesophageal reflux disease) Chronic obstructive bronchitis Depression Colonic polyp ANURADHA (obstructive sleep apnea) Tobacco abuse Asthma Parathyroid adenoma Incontinence of feces COPD (chronic obstructive pulmonary disease) Stable angina pectoris Allergic rhinitis Constipation IBS (irritable bowel syndrome) Dyspepsia Heartburn Postprandial epigastric pain Surgical History Hx of section Hx of tubal ligation Family History Family History Father Hypertension Diabetes Kidney disease Heart disease Social History Social History Household Members: None Alcohol intake: never Patient Tobacco Use Status: Current everyday Tobacco user Cigarettes Per Day: 7 Smoked in Last 30 Days: No Use of substances other than those prescribed or required for medical reasons: No Advance Directives: No Advance Directives Information Provided: Yes Do you have a plan to hurt others: No Plan Current occupational status: unemployed Physical Exam Vital Signs: Vital Signs: Last Vital Signs Temp 97.8 F 01/21/24 01:16 Pulse 83 01/21/24 01:16 Resp 17 01/21/24 01:16 BP 142/85 H 01/21/24 01:16 Pulse Ox 91 L 01/21/24 01:16 O2 Del Method Room Air 01/21/24 01:16 BMI result Body Mass Index 28.5 Appearance: Alert. Oriented X3. No acute distress. Eyes: Pupils equal, round and reactive to light. ENT: Pharynx normal. Neck: Normal inspection. Neck supple. CVS: Normal heart rate and rhythm. Pulses normal. Respiratory: No respiratory distress. Breath sounds normal. Abdomen: Soft and nontender. Back: ttp along both lumbar paraspinals, pain with L leg straight raise 45 degrees Skin: Skin warm and dry. Normal skin color. Normal skin turgor. Extremities: No lower extremity edema. No calf ttp Neuro: Oriented X 3. No motor deficit. No sensory deficit. SILT inner thigh L 5/5 bilaterally Medications Administered Discontinued Medications Generic Name Dose Route Start Last Admin Trade Name Freq PRN Reason Stop Dose Admin Morphine Sulfate 15 mg 01/21/24 01:13 01/21/24 01:52 Morphine Sulfate Immed Release 15 Mg Tablet PO 01/21/24 01:14 15 mg ONCE ONE Administration Ondansetron HCl 4 mg 01/21/24 01:13 01/21/24 01:25 Ondansetron Odt 4 Mg Tab.Rapdis TRANSLINGU 01/21/24 01:14 4 mg ONCE ONE Administration Medical Decision Making Medical Decision Making MDM Narrative: 64 yo female with chronic prior back pain, RA not on immunosuppressants, fibromyalgia here with c/o low back pain not related to fall no abdominal pain fevers, urinary symptoms neuro symptoms weight loss red flags or cauda equina symptoms at this time PO pain control and reassess. Differential Diagnosis Differential Diagnoses: The differential diagnosis associated with the presentation includes spasm, strain, sprain Admission/Observation Consideration of admission/observation: Escalation of care including admission/observation considered pain improved after morphine wants to go home stable for DC Lab Data Labs: Lab Results 01/21/24 Range/Units 00:49 Urine Color Yellow Urine Appearance Clear Urine pH 8.5 (5.0-9.0) Ur Specific [place] 1.025 (1.005-1.025) Urine Protein Negative (Neg-Trace) mg/dL Urine Glucose (UA) 100 H (Negative) mg/dL Urine Ketones 15 (Negative) mg/dL Urine Blood Negative (Negative) Urine Nitrite Negative (Negative) Ur Leukocyte Esterase Negative (Negative) Independent Interpretation I performed an independent interpretation of an: Plain X-Ray Radiology Impression Discussion of test interpretation with radiology: I have reviewed the radiologist's reading. External Record Review External record reviewed: Inpatient record Prescription Management I considered prescription management with: Pain Medication Discharge Plan Discharge Clinical Impression: Strain of lumbar region Qualifiers: Encounter type: initial encounter Qualified Code(s): S39.012A - Strain of muscle, fascia and tendon of lower back, initial encounter Patient Disposition: Home, Self-Care Instructions: Acute Low Back Pain (ED) Additional Instructions: return for worsening pain, numbness, weakness, fevers, loss of control of bowel or bladder or any other concerns follow up with doctor Prescriptions: New morphine 15 mg tablet 15 mg PO TID PRN (Reason: pain) Qty: 10 0RF Rx Instructions: partial fill okay; Partial Fill upon patient request. No Action prednisone 5 mg tablet See Rx Instructions PO DAILY Qty: 30 0RF Rx Instructions: 4 tablet for 3 days 3 tablet for 3 days 2 tablet for 3 days 1 tablet for 3 days stop. acetaminophen [Tylenol Extra Strength] 500 mg tablet 1,000 mg PO Q6H PRN amlodipine 5 mg tablet 5 mg PO DAILY calcium carbonate-vitamin D3 [Calcium 500 + D] 500 mg-10 mcg (400 unit) tablet 1 tab PO BID cholecalciferol (vitamin D3) 50 mcg (2,000 unit) capsule 50 mcg PO DAILY diphenhydramine HCl [Benadryl] 25 mg capsule 25 mg PO TID PRN divalproex 250 mg tablet,delayed release (DR/EC) 250 mg PO DAILY duloxetine 60 mg capsule,delayed release(DR/EC) 60 mg PO DAILY famotidine 20 mg tablet 20 mg PO BID fluticasone propionate [Allergy Relief (fluticasone)] 50 mcg/actuation spray,suspension 2 spray intranasal BID Rx Instructions: administer into each nostril hydrochlorothiazide 12.5 mg tablet 25 mg PO DAILY ketoconazole 2 % cream 1 appl topical DAILY loperamide 2 mg tablet 2 mg PO Q6H PRN cetirizine [Allergy Relief (cetirizine)] 10 mg tablet 10 mg PO DAILY PRN Incruse Ellipta 62.5 mcg/actuation blister with device 1 inh inhalation DAILY pantoprazole 40 mg tablet,delayed release (DR/EC) 40 mg PO DAILY polyethylene glycol 3350 17 gram/dose powder 17 g PO DAILY pregabalin 75 mg capsule 75 mg PO BID psyllium husk [Fiber (psyllium husk)] 0.4 gram capsule 0.4 g PO DAILY azelastine 137 mcg (0.1 %) aerosol,spray 1 spray intranasal BID Rx Instructions: administer into each nostril bisacodyl 10 mg suppository [address] DAILY PRN ezetimibe 10 mg tablet 10 mg PO DAILY trospium 60 mg capsule,extended release 24hr 60 mg PO DAILY rosuvastatin 20 mg tablet 20 mg PO DAILY (DME) wrist splint See Rx Instructions .Route .MEDSUPPLY Qty: 1 0RF Rx Instructions: wear as all night & as much as possible throughout the day methocarbamol 750 mg tablet 750 mg PO BID PRN (Reason: muscle spasm) 30 Days Qty: 60 0RF buspirone 30 mg tablet 30 mg PO BID celecoxib [Celebrex] 100 mg capsule 100 mg PO BID PRN (Reason: pain) Qty: 60 0RF Rx Instructions: Take it with food and full glass of water. Print Language: Colombian
[2024-01-21] MEDS: Ondansetron ODT 4 MG TAB.RAPDIS TRANSLINGU (01:25)
[2024-01-21] MEDS: Morphine Sulfate Immed Release 15 MG TABLET PO (01:52)
[2024-01-21 02:24] VITALS: BP 148/79; PULSE 80; RESP 14; TEMP 36.8; O2SAT 93
[2024-01-21 02:31] VITALS: BP 148/79; PULSE 80; RESP 14; TEMP 36.8; O2SAT 93
== END 2024-01-21 02:39 | disposition home or self-care (01) ==
PROVIDERS: Emergency Provider Emergency Medicine
DX: S39.012A Strain of muscle, fascia and tendon of lower back, initial encounter (principal); X50.0XXA Overexertion from strenuous movement or load, initial encounter; F17.210 Nicotine dependence, cigarettes, uncomplicated; Y93.9 Activity, unspecified; Y92.9 Unspecified place or not applicable; Y99.9 Unspecified external cause status
CPT/HCPCS: 81003; 99283; 99284

== ENCOUNTER 2024-04-12 11:37 | Emergency (ER) | payer OTHER, SELFPAY ==
--- NOTE | ~2024-04-12 | XR_ITS ---
EXAMINATION: XR LUMBOSACRAL SPINE CLINICAL INFORMATION: Low back pain with sciatica COMPARISON: Lumbar spine radiographs 01/12/2023, lumbar spine MRI 03/12/2023 TECHNIQUE: Three views of the lumbosacral spine. FINDINGS: There is mild disc space narrowing at L4-L5 other disc spaces intact. Some mild spondylitic endplate changes are seen at the superior anterior endplates of L2 and L3. Sclerotic changes are seen at the facet joints at L4-L5 and L5-S1. No fractures or bony destructive changes are seen. Severe aortoiliac calcifications are seen. XR/XR lumbar spine 2-3V IMPRESSION: Degenerative changes as described above with mild disc space narrowing at L4-L5. Severe aortoiliac calcifications are seen - is this patient a smoker as this may sometimes be seen with Leriche syndrome in middle-aged females Electronically signed by: Tristen Francisco MD 04/12/2024 02:04 PM EDT
[2024-04-12 12:04] VITALS: BP 123/73; PULSE 76; RESP 18; TEMP 36.2; O2SAT 91; BMI 30.6
--- NOTE | 2024-04-12 12:05 | ED_ITS ---
HPI - Back Pain/Injury General Chief Complaint: Extremity Problem Stated Complaint: Sciatic pain Time Seen by Provider: 04/12/24 15:31 Related Data Home Medications ?Medication ?Instructions ?Recorded ?Confirmed acetaminophen 500 mg tablet 1,000 mg PO Q6H PRN 08/19/22 12/29/23 (Tylenol Extra Strength) amlodipine 5 mg tablet 5 mg PO DAILY 08/19/22 12/29/23 azelastine 137 mcg (0.1 %) nasal 1 spray intranasal BID 08/19/22 12/29/23 spray bisacodyl 10 mg rectal suppository 10 mg GA DAILY PRN 08/19/22 12/29/23 calcium carbonate 500 mg-vitamin 1 tab PO BID 08/19/22 12/29/23 D3 10 mcg (400 unit) tablet (Calcium 500 + D) cetirizine 10 mg tablet (Allergy 10 mg PO DAILY PRN 08/19/22 12/29/23 Relief (cetirizine)) cholecalciferol (vitamin D3) 50 50 mcg PO DAILY 08/19/22 12/29/23 mcg (2,000 unit) capsule diphenhydramine HCl 25 mg capsule 25 mg PO TID PRN 08/19/22 12/29/23 (Benadryl) divalproex 250 mg tablet,delayed 250 mg PO DAILY 08/19/22 12/29/23 release duloxetine 60 mg capsule,delayed 60 mg PO DAILY 08/19/22 12/29/23 release famotidine 20 mg tablet 20 mg PO BID 08/19/22 12/29/23 fluticasone propionate 50 2 spray intranasal BID 08/19/22 12/29/23 mcg/actuation nasal spray,suspension (Allergy Relief (fluticasone)) hydrochlorothiazide 12.5 mg tablet 25 mg PO DAILY 08/19/22 12/29/23 ketoconazole 2 % topical cream 1 appl topical DAILY 08/19/22 12/29/23 loperamide 2 mg tablet 2 mg PO Q6H PRN 08/19/22 12/29/23 pantoprazole 40 mg tablet,delayed 40 mg PO DAILY 08/19/22 12/29/23 release polyethylene glycol 3350 17 17 g PO DAILY 08/19/22 12/29/23 gram/dose oral powder pregabalin 75 mg capsule 75 mg PO BID 08/19/22 12/29/23 psyllium husk 0.4 gram capsule 0.4 g PO DAILY 08/19/22 12/29/23 (Fiber (psyllium husk)) umeclidinium 62.5 mcg/actuation 1 inh inhalation DAILY 08/19/22 12/29/23 blister powder for inhalation (Incruse Ellipta) ezetimibe 10 mg tablet 10 mg PO DAILY 09/08/22 12/29/23 rosuvastatin 20 mg tablet 20 mg PO DAILY 09/08/22 12/29/23 trospium 60 mg capsule,extended 60 mg PO DAILY 09/08/22 12/29/23 release 24 hr buspirone 30 mg tablet 30 mg PO BID 12/29/23 12/29/23 Previous Rx's ?Medication ?Instructions ?Recorded wrist splint #1 ea 12/08/22 methocarbamol 750 mg tablet 750 mg PO BID PRN muscle spasm 30 01/03/23 days #60 tabs celecoxib 100 mg capsule (Celebrex) 100 mg PO BID PRN pain #60 caps 06/28/23 prednisone 5 mg tablet See Rx Instructions PO DAILY #30 01/20/24 tabs morphine 15 mg immediate release 15 mg PO TID PRN pain #10 tabs 01/21/24 tablet lidocaine 5 % topical patch 1 patch topical DAILY #30 ea 04/12/24 (Lidoderm) prednisone 20 mg tablet 40 mg (2 x 20 mg) PO DAILY 5 days 04/12/24 #10 tabs Allergies Allergy/AdvReac Type Severity Reaction Status Date / Time Penicillins Allergy Intermediate hives Verified 04/12/24 12:09 acetaminophen [From Percocet] Allergy Nausea Verified 04/12/24 12:09 oxycodone [From Percocet] Allergy Nausea Verified 04/12/24 12:09 seafood Allergy Severe Anaphylaxis Uncoded 04/12/24 12:09 [facility] Past Medical History Medical History Bilateral elbow joint pain Fibromyalgia GERD (gastroesophageal reflux disease) Chronic obstructive bronchitis Depression Colonic polyp ANURADHA (obstructive sleep apnea) Tobacco abuse Asthma Parathyroid adenoma Incontinence of feces COPD (chronic obstructive pulmonary disease) Stable angina pectoris Allergic rhinitis Constipation IBS (irritable bowel syndrome) Dyspepsia Heartburn Postprandial epigastric pain Surgical History Hx of section Hx of tubal ligation Family History Family History Father Hypertension Diabetes Kidney disease Heart disease Social History Social History Household Members: None Alcohol intake: never Patient Tobacco Use Status: Current everyday Tobacco user Cigarettes Per Day: 7 Advance Directives: No Advance Directives Information Provided: Yes Current occupational status: unemployed Physical Exam Vital Signs: Vital Signs: Last Vital Signs Temp 97.9 F 04/12/24 17:02 Pulse 63 04/12/24 17:02 Resp 18 04/12/24 17:02 BP 132/62 04/12/24 17:02 Pulse Ox 98 04/12/24 17:02 O2 Del Method Room Air 04/12/24 17:02 BMI result Body Mass Index 30.6 Course Course Course Narrative: This is a Rapid Medical Examination (RME) performed by Shell Silver PA-C in triage. Full HPI, ROS, assessment and treatment plan per primary provider in the Main ED. 64 yo female hx of chronic back pain, RA not on immunosuppressants, fibromyalgia here w/ atraumatic 10 left lumbar back pain x1 month, worsening acutely x few days. no injury/ trauma. pain begins to left low back/ hip and radiates down left leg. admits to hx of sciatica stating this feels similar. taking tylenol, lyrica, cymbalta without relief. she states she got morphine the last time she was here for back pain which improved her pain however made her nauseous. no red flag symptoms. + No midline spinous tenderness or step off deformity. No paraspinal muscle tenderness. ambulating w/ steady gait. Plan: xrs, pain control Discharge Plan Discharge Clinical Impression: Sciatica Patient Disposition: Home, Self-Care Instructions: Sciatica (ED) Additional Instructions: You were seen in the emergency department due to sciatica. Continue using Tylenol as needed for pain. Lidoderm patches also can help with your pain. Do not apply heat or ice directly to these areas. Take prednisone as prescribed. You need to follow-up with your primary care physician regarding this visit. On your lumbar spine x-ray you do have severe aortoiliac calcifications seen, you need to follow-up with your primary care physician regarding this. You also need to stop smoking as this increases complications. You have degenerative changes and mild disc space narrowing at your L4-L5 region. Any new or worsening symptoms occur including but not limited to chest pain, shortness breath, headache, please return for re-evaluation. Prescriptions: New prednisone 20 mg tablet 40 mg PO DAILY 5 Days Qty: 10 0RF lidocaine [Lidoderm] 5 % adhesive patch,medicated 1 patch topical DAILY Qty: 30 0RF Rx Instructions: leave on most painful area for up to 12 hrs No Action prednisone 5 mg tablet See Rx Instructions PO DAILY Qty: 30 0RF Rx Instructions: 4 tablet for 3 days 3 tablet for 3 days 2 tablet for 3 days 1 tablet for 3 days stop. morphine 15 mg tablet 15 mg PO TID PRN (Reason: pain) Qty: 10 0RF Rx Instructions: partial fill okay; Partial Fill upon patient request. acetaminophen [Tylenol Extra Strength] 500 mg tablet 1,000 mg PO Q6H PRN amlodipine 5 mg tablet 5 mg PO DAILY calcium carbonate-vitamin D3 [Calcium 500 + D] 500 mg-10 mcg (400 unit) tablet 1 tab PO BID cholecalciferol (vitamin D3) 50 mcg (2,000 unit) capsule 50 mcg PO DAILY diphenhydramine HCl [Benadryl] 25 mg capsule 25 mg PO TID PRN divalproex 250 mg tablet,delayed release (DR/EC) 250 mg PO DAILY duloxetine 60 mg capsule,delayed release(DR/EC) 60 mg PO DAILY famotidine 20 mg tablet 20 mg PO BID fluticasone propionate [Allergy Relief (fluticasone)] 50 mcg/actuation spray,suspension 2 spray intranasal BID Rx Instructions: administer into each nostril hydrochlorothiazide 12.5 mg tablet 25 mg PO DAILY ketoconazole 2 % cream 1 appl topical DAILY loperamide 2 mg tablet 2 mg PO Q6H PRN cetirizine [Allergy Relief (cetirizine)] 10 mg tablet 10 mg PO DAILY PRN Incruse Ellipta 62.5 mcg/actuation blister with device 1 inh inhalation DAILY pantoprazole 40 mg tablet,delayed release (DR/EC) 40 mg PO DAILY polyethylene glycol 3350 17 gram/dose powder 17 g PO DAILY pregabalin 75 mg capsule 75 mg PO BID psyllium husk [Fiber (psyllium husk)] 0.4 gram capsule 0.4 g PO DAILY azelastine 137 mcg (0.1 %) aerosol,spray 1 spray intranasal BID Rx Instructions: administer into each nostril bisacodyl 10 mg suppository 10 mg GA DAILY PRN ezetimibe 10 mg tablet 10 mg PO DAILY trospium 60 mg capsule,extended release 24hr 60 mg PO DAILY rosuvastatin 20 mg tablet 20 mg PO DAILY (DME) wrist splint See Rx Instructions .Route .MEDSUPPLY Qty: 1 0RF Rx Instructions: wear as all night & as much as possible throughout the day methocarbamol 750 mg tablet 750 mg PO BID PRN (Reason: muscle spasm) 30 Days Qty: 60 0RF buspirone 30 mg tablet 30 mg PO BID celecoxib [Celebrex] 100 mg capsule 100 mg PO BID PRN (Reason: pain) Qty: 60 0RF Rx Instructions: Take it with food and full glass of water. Interventions: ED Discharge Assessment Last Done: 04/12/24 17:02 Discharge Date/Time: 04/12/24 17:03 Print Language: Estonian
[2024-04-12 15:33] VITALS: BP 132/62; PULSE 63; RESP 18; TEMP 36.6; O2SAT 98
[2024-04-12 17:02] VITALS: BP 132/62; PULSE 63; RESP 18; TEMP 36.6; O2SAT 98
== END 2024-04-12 17:03 | disposition home or self-care (01) ==
PROVIDERS: Emergency Provider Emergency Medicine
DX: M54.42 Lumbago with sciatica, left side (principal); M79.605 Pain in left leg; Z79.899 Other long term (current) drug therapy
CPT/HCPCS: 72100; 99283